=== PATIENT | male | born 1945 | race Asian ===

== ENCOUNTER 2017-12-13 07:03 | Emergency (ER) | payer BC, OTHER ==
[~2017-12-13] VITALS: Ht 170.2 cm; Wt 81.6 kg
[2017-12-13 07:07] VITALS: BP_SYST 161
[2017-12-13 08:03] LABS: BASOPHILS % (AUTO) 0.7 % (0.0-2.0); EOSINOPHILS # (AUTO) 0.3 K/uL (0.0-0.4); EOSINOPHILS % (AUTO) 4.9 % (0.0-4.0); HEMATOCRIT 32.3 % (36-54); HEMOGLOBIN 10.6 g/dL (14.0-18.0); LYMPHOCYTES # (AUTO) 0.8 K/uL (1.0-5.5); MEAN CORPUSCULAR HEMOGLOBIN 28 pg (27-31); MEAN CORPUSCULAR HGB CONC 33 % (32-36); MEAN CORPUSCULAR VOLUME 87 fL (79.0-98.0); MONOCYTES # (AUTO) 0.8 K/uL (0.0-1.0); NEUTROPHILS # (AUTO) 3.2 K/uL (1.8-7.7); NEUTROPHILS % (AUTO) 63.4 % (40.0-70.0); PLATELET COUNT (AUTO) 182 K/uL (130-430); RED BLOOD CELL COUNT(AUTO) 3.73 MIL/uL (4.2-6.2); RED CELL DISTRIBUTION WIDTH 16.3 % (9.0-15.0); WHITE BLOOD COUNT (AUTO) 5.1 K/uL (4.8-10.8)
[2017-12-13 08:04] LABS: ANION GAP 11 (5-15); CALCIUM 8.5 mg/dL (8.4-11.0); CHLORIDE 97 mmol/L (98-107); CREATININE 6.03 mg/dL (0.55-1.30); GLUCOSE 140 mg/dL (70-99); POTASSIUM 4.1 mmol/L (3.5-5.1); SODIUM SERUM 135 mmol/L (136-145); UREA NITROGEN, BLOOD 46 mg/dL (8-21)
[2017-12-13 08:08] LABS: INR 1.1 (0.80-1.20); PROTHROMBIN TIME 11.6 SECS (9.5-12.5)
[2017-12-13 08:09] LABS: ALANINE AMINOTRANSFERASE 7 U/L (12-78); ALBUMIN 3.2 g/dL (3.4-4.8); ASPARTATE AMINOTRANSFERASE 15 U/L (10-37); TOTAL BILIRUBIN 0.5 mg/dL (0.0-1.0)
[2017-12-13 09:00] VITALS: BP_SYST 156
== END 2017-12-13 09:00 | disposition home or self-care (01) ==
LOC: SED 07:03
DX: T82.838A Hemorrhage due to vascular prosthetic devices, implants and grafts, initial encounter (principal); N18.9 Chronic kidney disease, unspecified; R07.89 Other chest pain; Y83.8 Other surgical procedures as the cause of abnormal reaction of the patient, or of later complication, without mention of misadventure at the time of the procedure; Y92.89 Other specified places as the place of occurrence of the external cause
CPT/HCPCS: 36415; 71045; 80053; 82550-TC; 83880; 84484; 85025; 85610-TC; 85730-TC; 93005; 99285